=== PATIENT | male | born 1970 | race Caucasian/White ===

== ENCOUNTER 2017-03-04 06:05 | Day surgery (SDC) | payer BC ==
[~2017-03-04] VITALS: Ht 170.2 cm; Wt 78.7 kg
[2017-03-04 06:22] VITALS: Ht 170.2 cm; Wt 78.7 kg
[2017-03-04 07:04] VITALS: BP 99/64; PULSE 63; RESP 18
[2017-03-04] MEDS ORDERED: MIDAZOLAM 1 MG/ML 2 ML INJ ONE ×2 (07:44)
[2017-03-04] MEDS ORDERED: FENTAnyl 50 MCG/ML VIAL ONE (07:44)
--- NOTE | 2017-03-04 07:47 | OPPN ---
Date/Time of Note Date/Time of Note DATE: 03/04/17 TIME: 07:46 Operative Report Preoperative Diagnosis Rectal bleeding Postoperative Diagnosis Internal and external hemorrhoid Operation/Procedure Performed Colonoscopy Surgeon see signature line imaging assistant None Anesthesia: moderate sedation Estimated blood loss: none Transfusion Required none Specimen None Grafts/Implants none Complications none ELAINE TERRY MD Mar 04, 2017 07:47
--- NOTE | 2017-03-04 07:47 | OPPN ---
Date/Time of Note Date/Time of Note DATE: 03/04/17 TIME: 07:46 Operative Report Preoperative Diagnosis Rectal bleeding Postoperative Diagnosis Internal and external hemorrhoid Operation/Procedure Performed Colonoscopy Surgeon see signature line carpenter's assistant None Anesthesia: moderate sedation Estimated blood loss: none Transfusion Required none Specimen None Grafts/Implants none Complications none ELAINE TERRY MD Mar 04, 2017 07:47
--- NOTE | 2017-03-04 07:47 | OPPN ---
Date/Time of Note Date/Time of Note DATE: 03/04/17 TIME: 07:46 Operative Report Preoperative Diagnosis Rectal bleeding Postoperative Diagnosis Internal and external hemorrhoid Operation/Procedure Performed Colonoscopy Surgeon see signature line dental front office assistant None Anesthesia: moderate sedation Estimated blood loss: none Transfusion Required none Specimen None Grafts/Implants none Complications none ELAINE TERRY MD Mar 04, 2017 07:47
--- NOTE | 2017-03-04 10:50 | GILP ---
DATE OF PROCEDURE: NAME OF PROCEDURE: Colonoscopy. SURGEON: Elaine Tam MD PREOPERATIVE DIAGNOSES: Rectal bleeding. POSTOPERATIVE DIAGNOSES 1. Colonoscopy all the way to the cecum. 2. Internal and external hemorrhoids. 3. Diverticula in the cecum. 4. No colon neoplasm was identified. INDICATION FOR THE PROCEDURE: Mr. Clifford Iverson is a 44-year-old male patient who had rectal b leeding. Patient was scheduled for colonoscopy for further evaluation. The procedure and possible complications were well explained to the patient. The patient understood and consented to the procedure. Under the influence of fentanyl and Versed, the colonoscope was carefully introduced in the rectum a nd under direct vision, it was advanced all the way to the cecum. FINDINGS: The patient had internal and external hemorrhoids. He was noted to have diverticulosis i n the cecal area. No colon neoplasm was identified. He tolerated the procedure very well and there was no complication from the procedure. At the end o f the procedure, he was awake with stable vital signs and he was discharged home to the care of his family. IMPRESSION: Please see postoperative diagnosis. PLAN: 1. Anusol-HC 2.5% cream b.i.d. 2. If the bleeding continues, consider surgical evaluation. Dictated By: ELAINE RAMOS/LINDSAY Conf#: [id number] DID#: [id number]
== END 2017-03-04 10:34 | disposition home or self-care (01) ==
LOC: GIL 06:05
PROVIDERS: ATTEND Internal Medicine Gastroenterology
DX: K64.8 Other hemorrhoids (principal); K64.4 Residual hemorrhoidal skin tags; K57.90 Diverticulosis of intestine, part unspecified, without perforation or abscess without bleeding
CPT/HCPCS: 45378; J2250; J3010; Z7610